=== PATIENT | female | born 1975 | race Caucasian/White ===

== ENCOUNTER 2016-08-24 14:32 | Emergency (ER) | payer OTHER ==
[2016-08-24] MEDS ORDERED: NS 0.9% 1000 ML* 2,000 ML IV ONE (14:58)
[2016-08-24] MEDS ORDERED: PROCHLORPERAZINE INJ 5 MG/ML 2 ML VIAL IV ONE (14:59)
[2016-08-24] MEDS ORDERED: Dextrose 50% Syringe 50 ML* 25 GM/50 ML SYRINGE ONE (15:32)
[2016-08-24] MEDS ORDERED: Dextrose 50% Syringe 50 ML* 25 GM/50 ML SYRINGE IV PUSH ONE (15:33)
[2016-08-24] MEDS ORDERED: Diltiazem IV VIAL* 125 MG in D5W 100 ML BAG* 100 ML IV ONE ×2 (15:36→16:00)
[2016-08-24 16:18] LABS: Urine Bilirubin Negative (Negative); Urine Glucose 3+(>=500 mg/dL) (Negative); Urine Nitrite Negative (Negative)
[2016-08-24 16:23] LABS: Hematocrit 37 % (35-47); Hemoglobin 12.2 g/dl (12.0-16.0); Mean Corpuscular HGB Conc 34 g/dl (31-36); Mean Corpuscular Hemoglobin 29 pg (27-31); Mean Corpuscular Volume 86 fL (80-97); Mean Platelet Volume 9 um3 (7.4-10.4); Red Blood Count 4.27 10^6/ul (4.0-5.4); Red Cell Distribution Width 13 % (10.5-15); White Blood Count 7.9 10^3/ul (3.5-10.8)
[2016-08-24 16:30] LABS: Albumin 3.7 g/dL (3.2-5.2); BUN/Creatinine Ratio 20.3 (8-20); Calcium 8.3 mg/dL (8.6-10.3); EGFR African American 143.8 (>60); EGFR Non-African American 111.8 (>60); Globulin 2.4 g/dL (2-4); Magnesium 1.6 mg/dL (1.9-2.7); Potassium 3.5 mmol/L (3.5-5.0); Total Bilirubin 0.4 mg/dL (0.2-1.0); Total Protein 6.1 g/dL (6.4-8.9)
[2016-08-24 16:55] LABS: TSH (Thyroid Stimulating Horm) 0.79 mcIU/mL (0.34-5.60)
[2016-08-24 17:00] VITALS: BP 101/56
--- NOTE | 2016-08-24 18:01 | ED ---
Zehra De La Rosa Anna, scribed for Flo Pandey MD on 08/24/16 at 1452 . Allergic Reaction/Systemic - HPI Summary HPI Summary: Patient is a 41 y/o female coming to [facility] following the sudden onset of an episode of syncope that occurred this afternoon. She feels cold, dizzy, and nauseous. She just had an upper endoscopy at [place]. She was being discharged when she had 4-5 episodes of emesis. She lost consciousness. She was given Zofran [employer] C[employer] that has not alleviated the nausea. She said her breathing feels okay. - History of Current Complaint Chief Complaint: EDGeneral Time Seen by Provider: 08/24/16 14:48 Hx Obtained From: Patient Onset/Duration: Sudden Onset - Allergies/Home Medications Allergies/Adverse Reactions: Allergies Allergy/AdvReac Type Severity Reaction Status Date / Time Azithromycin [From Zithromax] Allergy Intermediate Abdominal Verified 05/21/13 08:00 Pain Codeine Allergy Intermediate Vomiting Verified 05/21/13 08:00 Morphine Allergy Intermediate Hives Verified 05/21/13 08:00 Sulfamethoxazole Allergy Intermediate Rash Verified 05/21/13 08:00 w/Trimethoprim [From Bactrim] PMH/Surg Hx/FS Hx/Imm Hx Cardiovascular History: Denies: Hx Atrial Fibrillation Respiratory History: Reports: Hx Asthma Psychiatric History: Reports: Hx Anxiety - Immunization History Date of Tetanus Vaccine: Unk Date of Influenza Vaccine: Unk Infectious Disease History: Denies: Traveled Outside the [place] in Last 30 Days - Family History Known Family History: Negative: Cardiac Disease, Hypertension, Diabetes - Social History Lives: With Family Alcohol Use: None Substance Use Type: Reports: None Smoking Status (MU): Never Smoked Tobacco Review of Systems Positive: Chills Positive: Nausea Neurological: Other - dizziness Positive: Syncope All Other Systems Reviewed And Are Negative: Yes Physical Exam Triage Information Reviewed: Yes Vital Signs On Initial Exam: Temp Pulse Resp BP Pulse Ox 98.4 F 106 20 95/82 99 08/24/16 14:54 08/24/16 14:54 08/24/16 14:54 08/24/16 14:54 08/24/16 15:24 Vital Signs Reviewed: Yes Appearance: Positive: Well-Appearing, No Pain Distress Skin: Positive: Warm, Skin Color Reflects Adequate Perfusion, Diaphoretic - a little bit Head/Face: Positive: Normal Head/Face Inspection Eyes: Positive: Normal ENT: Positive: Normal ENT inspection Neck: Positive: Supple, Nontender Respiratory/Lung Sounds: Positive: Clear to Auscultation, Breath Sounds Present Cardiovascular: Positive: IRR, Tachycardia Abdomen Description: Positive: Nontender, Soft Bowel Sounds: Positive: Present Musculoskeletal: Positive: Normal Neurological: Positive: Normal Psychiatric: Positive: Anxious Diagnostics - Vital Signs Vital Signs Temp Pulse Resp BP Pulse Ox 08/24/16 15:24 99 08/24/16 14:54 98.4 F 106 20 95/82 100 08/24/16 14:48 98.3 F 106 20 95/82 100 - Laboratory Lab Results: Lab Results 08/24/16 Range/Units 15:30 POC Glucose (mg/dL) 53 L (74-106) mg/dL Result Diagrams: 08/24/16 16:00 08/24/16 16:00 Lab Statement: Any lab studies that have been ordered have been reviewed, and results considered in the medical decision making process. - EKG 1449 Cardiac Rate: Tachycardia - 110 bpm EKG Rhythm: Atrial Fibrillation - with rapid response ST Segment: Normal Ectopy: None 1448 Cardiac Rate: Tachycardia EKG Rhythm: Atrial Fibrillation - with rapid response ST Segment: Normal Ectopy: None Re-Evaluation - Re-Evaluation First Eval Re-Evaluation Time: 15:23 Change: Worse Comment: Patient now feels CP. Second Eval Re-Evaluation Time: 15:36 Comment: Discussed results and plan of care with patient and family. Patient and family agree with plan. Allergic Reaction Course/Dx - Course Course Of Treatment: Ms. Oh was found to be in A-Fib with a rapid response and was given fluids and additional antiemetics. Diltiazem was ordered but she converted to NSR prior to it being started. She felt significantly improved and is stable for D/C. - Diagnoses Provider Diagnoses: Atrial fibrillation with rapid ventricular response - Provider Notifications Patient Care Discussed With: Dr. Butler (hospitalist) at 1541. Agrees to accept patient for admission. Dr. Sunshine (screenplay writer) at 1652. Patient is safe to be discharged home. Accepts patient for follow up. - Critical Care Time Critical Care Time: 30-74 min Discharge - Discharge Plan Condition: Stable Disposition: HOME The documentation as recorded by the Zehra mccollum Anna accurately reflects the service I personally performed and the decisions made by me, Flo Pandey MD.
== END 2016-08-24 17:09 | disposition home or self-care (01) ==
LOC: ED 14:32 → UNDOADMOB 15:41 → MEDTELE 15:41
DX: I48.91 Unspecified atrial fibrillation (principal); R55 Syncope and collapse; R11.0 Nausea; R68.83 Chills (without fever)
CPT/HCPCS: 36415; 80053; 81003; 83605; 83735; 84443; 84484; 85025; 93005; 96365; 99283; J0780